=== PATIENT | female | born 1960 | race Hispanic/Latino ===

== ENCOUNTER 2021-07-02 14:20 | Emergency (ER) | payer BC ==
[2021-07-02] MEDS: KETOROLAC 30 MG/1 ML INJ IV ONE (15:40)
[2021-07-02] MEDS: SODIUM CHLORIDE 0.9% 1000 ML 1,000 ML IV ONE (15:40)
[2021-07-02] MEDS: ONDANSETRON 4 MG/2 ML INJ IV ONE ×3 (15:40→22:31)
[2021-07-02 15:42] LABS: HCG Qualitative,Urine Negative (Negative)
[2021-07-02 15:47] LABS: Bacteria,Urine 3+ /HPF (Negative); Bilirubin,Urine NEG (Negative); Blood,Urine LG (Negative); Color,Urine Yellow (Yellow); RBC,Urine > 182.0 /HPF (0.0-6.0); Urobilinogen,Urine < 2.0 mg/dL (<2.0)
[2021-07-02 16:35] LABS: Basophils % (Auto) 0.2 % (0.0-1.8); Lymphocytes # (Auto) 1.3 K/mm3 (1.2-5.4); Lymphocytes % (Auto) 10.3 % (13.4-35.0); Mean Corpuscular HGB Conc 32 % (30-34); Mean Corpuscular Volume 87 fl (79-97); Monocytes # (Auto) 0.5 K/mm3 (0.0-0.8); Monocytes % (Auto) 3.9 % (0.0-7.3); Platelet Count 475 K/mm3 (140-440); Red Blood Count 4.26 M/mm3 (3.65-5.03); Red Cell Distribution Width 14.2 % (13.2-15.2)
[2021-07-02] MEDS: METOCLOPRAMIDE 10 MG/2 ML INJ IV ONE (16:36)
[2021-07-02 16:47] LABS: Alanine Aminotransferase 17 units/L (7-56); Albumin 3.4 g/dL (3.9-5); BUN/Creatinine Ratio 25; Blood Urea Nitrogen 20 mg/dL (7-17); Calcium 9.1 mg/dL (8.4-10.2); Hemolysis Index 3
--- NOTE | 2021-07-02 17:34 | Cat Scan Report ---
CT ABDOMEN AND PELVIS WITH CONTRAST INDICATION: Abdominal pain, nausea, vomiting CONTRAST: 100 cc Omnipaque 300 IV COMPARISON: None available. All CT scans at this location are performed using CT dose reduction for ALARA by means of automated e xposure control. FINDINGS: Lung bases clear. Small hiatal hernia. No pneumoperitoneum. No free fluid. No lymphadenopat hy. Gallbladder and bile ducts normal. Tiny hepatic cyst. No bowel obstruction. Appendix normal. Mild colonic diverticulosis without obvious diverticulitis. Much of the colon difficult to evaluate due t o lack of distention. No evidence of small bowel obstruction. Bilateral ureteral stents are noted with lower pigtails well into the bladder and upper pigtails in t he renal pelves though in the lower most portion on the right. Moderate obstructive change is seen on the right with dilatation of the collecting system and ureter to the distal portion a few centimeter s above the ureterovesical junction. At the transition zone adjacent to the catheter is a 5 mm calcul us within the ureter. Mild edema is seen surrounding this portion of the ureter. I do not clearly see wall thickening or enhancement however. There appear to be surgical changes in small bowel in the ri ght adnexal area close to the ureter with curvilinear hyperdensity seen but no bowel dilatation is no ana cristina and no wall thickening is obvious. No mass lesion is seen. No left-sided obstructive changes are seen. Bilateral nephrolithiasis is noted with scattered tiny ca lculi on the right and a 5 mm calculus in the midportion of the left kidney. No right renal parenchym al lesions are seen. Left kidney shows several small indeterminate cortical hypodensities measuring u p to 10 mm. Urinary bladder shows minimal gas which probably is iatrogenic. No focal bladder abnormal ities are seen. No adnexal masses are noted. IMPRESSION: 1. Despite presence of bilateral ureteral stents, moderate obstructive changes are seen in the right renal collecting system and upper to mid right ureter. These extend to the distal right ureter where a calculus is seen adjacent to the stent. This is also an area of what appears to be previous bowel s urgical change and there is mild inflammation in this area though I do not clearly see ureteral wall thickening/enhancement or a mass lesion. No left-sided obstructive changes are seen. 2. Small indeterminate left renal lesions, not clearly cysts. Recommend follow-up. 3. Bilateral nephrolithiasis Signer Name: Vito Mcgill MD Signed: 07/02/2021 5:30 PM Workstation Name: [id number]
[2021-07-02] MEDS: MORPHINE 4 MG/1 ML INJ IV ONE ×3 (18:26→22:31)
--- NOTE | 2021-07-02 20:21 | Emergency Department Report ---
ED N/V/D HPI - General Chief complaint: Nausea/Vomiting/Diarrhea Stated complaint: NAUSEA VOMITING Time Seen by Provider: 07/02/21 15:05 Source: patient Mode of arrival: Ambulatory Limitations: No Limitations - History of Present Illness Initial comments: pt with right flank pin and nausea and vomiting , just landed to airport from [place] , she had ureteral stent done last month and started having pain today , she is from [facility] - Related Data Allergies Allergy/AdvReac Type Severity Reaction Status Date / Time No Known Allergies Allergy Verified 07/02/21 14:23 ED Review of Systems ROS: Stated complaint: NAUSEA VOMITING Other details as noted in HPI Constitutional: denies: chills, fever Eyes: denies: eye pain, eye discharge, vision change ENT: denies: ear pain, throat pain Respiratory: denies: cough, shortness of breath, wheezing Cardiovascular: denies: chest pain, palpitations Endocrine: no symptoms reported Gastrointestinal: denies: abdominal pain, nausea, diarrhea Genitourinary: denies: urgency, dysuria, discharge Musculoskeletal: denies: back pain, joint swelling, arthralgia Skin: denies: rash, lesions Neurological: denies: headache, weakness, paresthesias Psychiatric: denies: anxiety, depression Hematological/Lymphatic: denies: easy bleeding, easy bruising ED Past Medical Hx - Past Medical History Previous Medical History?: No Hx Hypertension: No ED Physical Exam - General Limitations: No Limitations General appearance: alert, in distress - Head Head exam: Present: atraumatic, normocephalic - Eye Eye exam: Present: normal appearance - ENT ENT exam: Present: mucous membranes moist - Neck Neck exam: Present: normal inspection - Respiratory Respiratory exam: Present: normal lung sounds bilaterally. Absent: respiratory distress - Cardiovascular Cardiovascular Exam: Present: regular rate, normal rhythm. Absent: systolic murmur, diastolic murmur, rubs, gallop - GI/Abdominal GI/Abdominal exam: Present: soft, normal bowel sounds - Extremities Exam Extremities exam: Present: normal inspection - Back Exam Back exam: Present: normal inspection - Neurological Exam Neurological exam: Present: alert, oriented X3 - Psychiatric Psychiatric exam: Present: normal affect, normal mood - Skin Skin exam: Present: warm, dry, intact, normal color. Absent: rash ED Course Vital Signs 07/02/21 14:24 Temperature 98.3 F Pulse Rate 91 H Respiratory 16 Rate Blood Pressure 138/87 [Left] O2 Sat by Pulse 99 Oximetry ED Medical Decision Making - Lab Data Result diagrams: 07/02/21 16:01 07/02/21 16:01 - EKG Data -: EKG Interpreted by Me EKG shows normal: sinus rhythm - Radiology Data Radiology results: report reviewed, image reviewed - Medical Decision Making work up showed elevated wbc and uti , abx gven after culture multiple doses of main meds morphine toradol given, zofran and reglan and benadryl given for nausea pt still nauseous but she waas noted to be asleep in bed, recived a call from her sister , claimed to be a nurse in [place] , Zo Carrasco asking us to give her dilaudid becauyse this only w hat works for patient , call was aggressive and unprofessional and had to be terminated , spoek with dr Mccall over [facility] accepted patient Critical care attestation.: If time is entered above; I have spent that time in minutes in the direct care of this critically ill patient, excluding procedure time. ED Disposition Clinical Impression: Intractable nausea and vomiting, Renal colic on right side Disposition: 51 HOSPICE/MEDICAL FACILITY Is pt being admited?: No Does the pt Need Aspirin: No Condition: Stable Referrals: PRIMARY CARE, [Primary Care Provider] - 3-5 Days
[2021-07-02] MEDS: diphenhydrAMINE 50 MG/ML VIAL IV ONE (20:30)
[2021-07-02] MEDS: cefTRIAXone/NS 1 GM/50 ML 1 GM/50 ML BAG IV ONE (20:52)
[2021-07-02] MEDS ORDERED: MORPHINE 4 MG/1 ML INJ ONE (22:25)
[2021-07-02] MEDS ORDERED: ONDANSETRON 4 MG/2 ML INJ ONE (22:26)
[2021-07-02 22:34] VITALS: BP 130/79
--- NOTE | 2021-07-03 18:03 | Electrocardiograph Report ---
[facility] Test Date: 2021-07-02 Test Time: 15:24:24 Pat Name: LIVAN TALAMANTES Department: Room: Gender: F Antenna Installer: NAN : 1960 Requested By: RUTH IGNACIO Order Number: [id number] Reading MD: Eric Frank Measurements Intervals [place] Rate: 84 P: 61 MN: 144 QRS: -5 QRSD: 82 T: 30 QT: 405 QTc: 479 Interpretive Statements Sinus rhythm Probable left atrial enlargement No previous ECG available for comparison Electronically Signed On 07-03-2021 18:03:38 EDT by Eric Frank
== END 2021-07-02 22:34 | disposition hospice, inpatient (51) ==
LOC: ED 14:20
DX: N23 Unspecified renal colic (principal); Z79.899 Other long term (current) drug therapy
CPT/HCPCS: 36415; 74177; 80053; 81001; 81025; 82150; 83690; 84484; 85025; 87086; 93005; 96361; 96365; 96375; 96376; 99285; J1200; J1885; J2270; J2405; J2765; J7030; Q9967; Q0162